=== PATIENT | female | born 1980 ===

== ENCOUNTER 2022-10-12 01:05 | Emergency (ER) | payer SELFPAY ==
[~2022-10-12] VITALS: Ht 160 cm; Wt 68.0 kg
[2022-10-12 01:06] VITALS: BP 120/74; PULSE 90; RESP 15; TEMP 97.1; O2SAT 100
--- NOTE | 2022-10-12 01:06 | NUR ---
BEN BELLS TO BED #4
[2022-10-12 01:09] VITALS: O2SAT 100
--- NOTE | 2022-10-12 01:12 | NUR ---
CALLED [place] [employer] AND SPOKE TO SAURAV AND PER SAURAV WILL DISPATCH AN OFFICER OR WILL CALL BACK.
--- NOTE | 2022-10-12 01:18 | NUR ---
PT STARTED TO BECOME AGGRAVATED AND GETTING OUT OF THE ROOM. ATTEMPTED DE-ESCALATION OF THERAPEUTIC COMMUNICATION BUT PT STILL ASKING TO CALL THE POLICE AND THE CLINICAL OPERATIONS MANAGER. DESTINEE FRIEDMAN MADE AWARE.
--- NOTE | 2022-10-12 01:37 | NUR ---
[employer]DR[employer] WORKER GENERAL AT BEDSIDE
--- NOTE | 2022-10-12 02:00 | NUR ---
PT REFUSED TO SIGN DISCHARGE PAPERWORK. PT ESCORTED OUT BY SECURITY.
--- NOTE | 2022-10-12 02:11 | NUR ---
[place] [employer] CALLED AND SPOKE TO OFFICER KEYS REGARDING PATIENT. PER OFFICER KEYS WILL COME TO ED.
--- NOTE | 2022-10-12 02:28 | NUR ---
Officer [place] from [place] [employer] spoke about patient. per Officer [place] will escort patient back to [place]
== END 2022-10-12 02:00 | disposition home or self-care (01) ==
LOC: MED 01:05
DX: S00.83XA Contusion of other part of head, initial encounter (principal); Y08.89XA Assault by other specified means, initial encounter; Y93.89 Activity, other specified; Y92.89 Other specified places as the place of occurrence of the external cause; Y99.8 Other external cause status
CPT/HCPCS: 99283